=== PATIENT | male | born 1990 | race Caucasian/White ===

== ENCOUNTER 2023-06-14 09:15 | Emergency (ER) | payer MEDICARE, MEDICAID, SELFPAY ==
[2023-06-14 09:22] VITALS: BP 130/96; PULSE 96; RESP 18; TEMP 36.6; O2SAT 99
--- NOTE | 2023-06-14 10:39 | ED.URI ---
HPI - URI/Sore Throat General Chief Complaint: Upper Respiratory Infection Stated Complaint: chest tight/rattling throat/fever History of Present Illness HPI Narrative: Pt is a 33 y/o male, presents to with 2 day hx of sinus pressure, productive cough with wheezing and subjective fever last HS. His significant other is currently being treated for a URI of similar nature. He denies associated CP when he is not coughing but endorses diffuse chest discomfort with each cough. He is not taking any OTC medications for symptom relief. He denies orthopnea, calf pain or swelling, PE or DVT hx. He is smoker. He denies any other associated URI symptoms or modifying factors. Related Data Allergies Allergy/AdvReac Type Severity Reaction Status Date / Time No Known Allergies Allergy Unverified 06/17/17 21:10 Review of Systems Constitutional: Comments: refer to HPI ENT: Comments: refer to HPI Respiratory: Comments: refer to HPI Exam Const: General: healthy appearing, no acute distress and alert Nutritional Appearance: well nourished and obese Orientation/consciousness: patient oriented x3 Limitations: no limitations Other: pt smells of cigarette smoke HENMT: Head: normal to inspection Ears: external ears normal and TM's normal bilaterally Face/Nose/Sinus: Normal external nose present and Normal nares present Face and sinus: normal facial exam and sinuses nontender Mouth: Yes Normal oral and palatal mucosa present, Yes lip normal and Yes moist mucous membranes Teeth and gingiva: dentition normal Throat: posterior oropharynx normal and uvula midline Other: injected pharyngeal mucosa with cobble stone appearance, otherwise unremarkable Eyes: Conjunctivae: conjunctivae normal Pupils: Equal, round and reactive pupils present EOM: EOMs intact bilaterally Neck: Neck: normal visual inspection and no lymphadenopathy Resp: Effort & Inspection: normal respiratory effort Auscultation: clear to auscultation bilaterally Other: spasmodic cough is noted with forced wheezing during cough only. no rales rhonchi or wheezing noted otherwise. Cardio: Rate: regular rate Rhythm: regular rhythm Back/Spine/Pelvis: Back: no CVA tenderness Skin: General skin exam: normal color Rashes: no rashes Wounds: no wounds Neuro: General: patient oriented x3, moves all extremities, no meningeal signs, no focal motor deficits and CN's II-XI intact bilaterally Cranial nerves: Yes Nystagmus not present Speech: normal speech Gait exam (Neuro): Normal gait present Extrem: General: normal to inspection, no clubbing, cyanosis or edema and no pedal edema Psych: Mental Status: mental status grossly normal Course Course Emergency Course: pt has URI symptoms, concerning for influenza with subjective fever however, he declines screening. Plan therefore, to treat with oral steroids, cough suppressant and inhaler. Push fluids, APAP for fevers AD OTC. Pt is agreeable with plan. Level of Care: Express Care Visit ([id number]) Vital Signs Vital signs: Vital Signs Temperature 36.6 C 06/14/23 09:22 Pulse Rate 96 06/14/23 09:22 Respiratory Rate 18 06/14/23 09:22 Blood Pressure 130/96 H 06/14/23 09:22 Pulse Oximetry 99 06/14/23 09:22 Oxygen Delivery Room Air 06/14/23 09:22 Temperature 36.6 C 06/14/23 09:22 Pulse Rate 96 06/14/23 09:22 Respiratory Rate 18 06/14/23 09:22 Blood Pressure 130/96 H 06/14/23 09:22 Pulse Oximetry 99 06/14/23 09:22 Oxygen Delivery Room Air 06/14/23 09:22 MDM - URI/Sore Throat MDM Narrative Medical decision making narrative: supportive care, APAP AD OTC, prednisone, promethazine DM and inhaler for rescue. PCP FU in 3 days if symptoms are not improving. Pt is agreeable with plan. Differential Diagnosis Differential diagnosis: Likely upper respiratory infection, otitis media, sinusitis, viral infection and bronchitis Discharge Plan Discharge Clinical Impres
== END 2023-06-14 10:52 | disposition home or self-care (01) ==
PROVIDERS: Emergency Provider Nurse Practitioner Family; PCP Family Medicine
DX: J06.9 Acute upper respiratory infection, unspecified (principal); J40 Bronchitis, not specified as acute or chronic; F17.200 Nicotine dependence, unspecified, uncomplicated
CPT/HCPCS: 99203; G0463

== ENCOUNTER 2023-07-18 15:13 | Outpatient (CLI) | payer OTHER, MEDICAID, SELFPAY ==
--- NOTE | ~2023-07-18 | US_ITS ---
EXAMINATION: US venous doppler [facility] DATE: 07/18/2023 16:02 INDICATION: LOCALIZED SWELLING OF LEFT LOWER EXTREMITY . TECHNIQUE: Grayscale images without and with compression and Doppler images of the left lower extremi ty veins were obtained. COMPARISON: None FINDINGS: The left common femoral vein, profunda (deep) femoral vein, femoral vein, popliteal vein, peroneal v ein, posterior tibial veins, gastrocnemius vein, and greater saphenous vein are patent. IMPRESSION: Patent left lower extremity veins. No evidence of deep venous thrombosis. Reviewed, dictated and finalized at location K.
== END 2023-07-18 15:14 | disposition home or self-care (01) ==
PROVIDERS: PCP Family Medicine; Visit Provider Family Medicine
DX: R22.42 Localized swelling, mass and lump, left lower limb (principal)
CPT/HCPCS: 93971

== ENCOUNTER 2023-12-12 11:28 | Emergency (ER) | payer OTHER, SELFPAY ==
[2023-12-12 11:35] VITALS: BP 129/83; PULSE 88; RESP 20; TEMP 37.2; O2SAT 100
--- NOTE | 2023-12-12 12:12 | ED.LOWEXIN ---
HPI - Extremity Injury (Lower) General Chief Complaint: Extremity Injury, Lower Stated Complaint: Right Leg Pain History of Present Illness HPI Narrative: patient is a 33-year-old male, without significant past medical history, presents to [facility] with right lower extremity pain, calf swelling and pain in the popliteal space, onset of symptoms Monday. He states that he was on the float trip over the weekend and also attended a concert, he was on his feet frequently and feels he initially thought this was related to overuse however he now has a area that is more swollen and the medial knee, cord-like interruption. He has no history of DVT. He denies family history of clotting disorders or factor 5 Leiden deficiency. He does smoke. He has no other associated symptoms and he denies modifying factors. Related Data Home Medications Medication Instructions Recorded Confirmed omeprazole 40 mg capsule,delayed mg 12/12/23 release Allergies Allergy/AdvReac Type Severity Reaction Status Date / Time No Known Allergies Allergy Unverified 12/12/23 11:32 Review of Systems Musculoskeletal: Comments: refer HPI Exam Const: General: healthy appearing and no acute distress Nutritional Appearance: well nourished Orientation/consciousness: patient oriented x3 Other: patient smells heavily of cigarette smoke HENMT: Head: normal to inspection Ears: external ears normal and TM's normal bilaterally Face and sinus: normal facial exam Throat: posterior oropharynx normal Eyes: Conjunctivae: conjunctivae normal Pupils: Equal, round and reactive pupils present EOM: EOMs intact bilaterally Neck: Neck: normal visual inspection, no lymphadenopathy and no meningeal signs Resp: Effort & Inspection: normal respiratory effort Auscultation: clear to auscultation bilaterally Cardio: Rate: regular rate Rhythm: regular rhythm Skin: General skin exam: normal color Rashes: no rashes Neuro: General: patient oriented x3, moves all extremities, no meningeal signs, no focal motor deficits and CN's II-XI intact bilaterally Extrem: Other: patient has a 8 cm palpable cord to the right medial knee extending into the right calf. There is no erythema or warmth surrounding. The popliteal space is also tender to palpation. There is some calf swelling as compared with the contralateral limb. No open wounds appreciated, no obvious cellulitis Course Course Emergency Course: patient advised we do not have capability of obtaining ultrasound/venous duplex to rule out a DVT. His exam is concerning for DVT. Patient requests [facility] Emergency Department for evaluation in lieu of Jean. He will transport himself directly there. Claribel RN at [facility] is notified of patient's pending arrival. They do advise they have ultrasound available until 1700 today. Level of Care: Express Care Visit (53073) Vital Signs Vital signs: Vital Signs Temperature 37.2 C 12/12/23 11:35 Pulse Rate 88 12/12/23 11:35 Respiratory Rate 20 12/12/23 11:35 Blood Pressure 129/83 12/12/23 11:35 Pulse Oximetry 100 12/12/23 11:35 Oxygen Delivery Room Air 12/12/23 11:35 Temperature 37.2 C 12/12/23 11:35 Pulse Rate 88 12/12/23 11:35 Respiratory Rate 20 12/12/23 11:35 Blood Pressure 129/83 12/12/23 11:35 Pulse Oximetry 100 12/12/23 11:35 Oxygen Delivery Room Air 12/12/23 11:35 MDM - Extremity Injury (Lower) MDM Narrative Medical decision making narrative: Concern for DVT, sent to ED for venous duplex Differential Diagnosis Differential diagnosis: Likely other ( sprain, strain, DVT, cellulitis) Discharge Plan Discharge Clinical Impression: Pain in right lower leg Patient Disposition: Acute Care Hospital Condition: Stable Prescriptions: No Action omeprazole 40 mg capsule,delayed release(DR/EC) Follow-up/Referrals: Harms,Froy Ga M.D. [Primary C
== END 2023-12-12 12:14 | disposition short-term general hospital (02) ==
PROVIDERS: Emergency Provider Nurse Practitioner Family; PCP Family Medicine
DX: M79.661 Pain in right lower leg (principal); F17.200 Nicotine dependence, unspecified, uncomplicated
CPT/HCPCS: 99212; G0463